=== PATIENT | female | born 1995 | race African-American/Black ===

== ENCOUNTER 2018-01-04 10:23 | Emergency (ER) | payer MEDICAID, SELFPAY ==
[2018-01-04 10:27] VITALS: BP 118/77; PULSE 111; RESP 14; TEMP 36.3; O2SAT 100; BMI 21.7
[2018-01-04 11:49] LABS: Absolute Lymphocyte Count 2.07 X10^3/ul (0.83-4.51); Absolute Neutrophil Count 4.6 X10^3/uL (2.0-7.7); Basophil# 0.01 X10^3/uL; Basophil% 0.1 % (0-1); Eosinophil# 0.09 X10^3/uL; Eosinophils% 1.2 % (0-5); Hematocrit 41.8 % (37-47); Hemoglobin 13.7 g/dl (12.0-15.0); Lymphocyte # 2.07 X10^3/ul (4.0); Lymphocyte % 27.2 % (19-41); Mean Corp Hgb Conc 32.8 g/gl (32-36); Mean Corpuscular Hgb 31.2 pg (27.0-32.0); Mean Corpuscular Volume 95.2 fL (81-99); Mean Platelet Vol. 9.9 fl (6.2-12.0); Monocyte# 0.81 X10^3/uL; Monocyte% 10.7 % (0-10); Neutrophil # 4.62 X10^3/uL (2.7-7.7); Neutrophil % 60.8 % (47-70); POSITIVE COUNT NO; POSITIVE DIFFERENTIAL NO; POSITIVE MORPHOLOGY NO; Platelet Count 288 K/mm3 (150-450); RBC Distribution Width CV 12.7 % (11.6-14.6); RBC Distribution Width SD 44.2 fl (35.1-43.9); Red Blood Count 4.39 M/mm3 (4.2-5.4); White Blood Count 7.6 K/mm3 (4.4-11.0)
[2018-01-04 11:57] LABS: ALB/GLOB Ratio 1.1 RATIO (0.9-2.4); AST(SGOT) 19 U/L (15-37); Alanine Aminotransfer ALT/SGPT 18 U/L (13-56); Albumin, Serum 3.9 g/dL (3.2-5.0); Alkaline Phosphatase 66 U/L (45-117); Anion Gap 9 (5-15); BUN 9 mg/dL (7-18); BUN/Creat Ratio 11.3 RATIO (10-20); Calcium,Total 9.1 mg/dL (8.5-10.1); Chloride 103 mmol/L (98-107); EST Glomerular Filtration Rate 97 mL/min (>60); Est Glom Filt Rate - Afr Amer 117 mL/min (>60); Globulin 3.5 g/dL (2.2-4.2); Glucose 75 mg/dL (74-106); Protein, Total 7.4 g/dL (6.4-8.2); Sodium Level 138 mmol/L (136-145)
[2018-01-04 12:02] LABS: Internal QC Validated? YES +Cl - CLEAR BKGD; Pregnancy, Urine Negative Negative
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
[2018-01-04 13:29] VITALS: BP 106/59; PULSE 100; RESP 16; O2SAT 95
[2018-01-04 13:36] LABS: Chlamydia Trachomatis by PCR Negative (Negative); Neisserai gonorrhoeae by PCR Negative (Negative); Probe Check PASS; Sample Adequacy Control PASS; Specimen Processing Control PASS
== END 2018-01-04 13:30 | disposition home or self-care (01) ==
PROVIDERS: Emergency Provider Emergency Medicine
DX: F15.20 Other stimulant dependence, uncomplicated (principal); R63.4 Abnormal weight loss; Z68.21 Body mass index [BMI] 21.0-21.9, adult; N91.2 Amenorrhea, unspecified; R55 Syncope and collapse; F43.10 Post-traumatic stress disorder, unspecified; F60.9 Personality disorder, unspecified; R50.9 Fever, unspecified; R53.1 Weakness; Z11.3 Encounter for screening for infections with a predominantly sexual mode of transmission; Z72.0 Tobacco use
CPT/HCPCS: 80053; 81025; 85025; 87491; 87591; 99284; A4216

== ENCOUNTER 2019-04-04 18:26 | Emergency (ER) | payer MEDICAID, SELFPAY ==
[2019-04-04 18:28] VITALS: BP 144/73; PULSE 80; RESP 12; TEMP 36.8; O2SAT 99; BMI 24.1
[2019-04-04 19:38] LABS: Bacteria 0 SEEN /hpf (None Seen); Color, Urine Yellow (Yellow); Glucose, Dipstick Normal (Normal); Ketone-Dipstick Negative (Negative); Leukocyte Esterase-Dipstick 25 /ul (Negative); Mucous, Urine 0 SEEN /hpf (<or=2+); Nitrite-Dipstick Negative (Negative); Occult Blood-Urine Negative /ul (Negative); Protein-Dipstick Negative (Negative); Red Blood Cells-Urine 0 SEEN /hpf (0-5); Specific Gravity, Urine 1.015 (1.002-1.030); Urine Bilirubin Dipstick Negative (Negative); Urine Clarity Clear (Clear); Urine Urobilinogen Normal (Normal); White Blood Cells 0 SEEN /hpf (0-5)
[2019-04-04 19:44] LABS: Squamous Epithelial Cells - UA 0-5 SEEN /hpf (5-10)
--- NOTE | 2019-04-04 20:01 | ED.VISSUMM ---
- ER Visit Summary Date of Service: 04/04/19 Chief Complaint: Pelvic pressure History of Present Illness: The patient is a 23 F P1 Ab0. Patient reports she is 2 months . She denies any vaginal bleeding. No significant discharge. No dysuria. No fever. Normal bowel movements. She has been seen by clinical clinic [facility]. Denies any recent ultrasound. Denies any fever. Physical Examination: Well-appearing young female. No acute distress. Vital signs stable afebrile. HEENT exam unremarkable. Neck nontender no lymphadenopathy. Lungs clear to auscultation. Heart regular rhythm no murmur. Abdomen soft nondistended normal bowel sounds no peritoneal signs. Minimal suprapubic tenderness. No organomegaly or masses other than slightly enlarged uterus. No lower quadrant tenderness. No McBurney's point tenderness. No right upper quadrant tenderness. No signs of obstruction. Patient moving all 4 extremities. Neurovascular intact. Calves are nontender without edema. Back is nontender. Neurologically she is awake and alert. Test Results: Urinalysis normal. No nitrates. No bacteria or white cells. Quantitative hCG is 247,523. heart tones were 150. Emergency Department Course and Treatment: Patient had to go to work and left. I went back to re-evaluate her and she is already left. Nurse called her with her test results. Treatment Plan: Follow-up with [facility]. Disposition: Discharge Impression: Pelvic pressure of uncertain etiology Reportedly first trimester This note was generated with [employer] dictation software. 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 Today there is no signs of infection. The baby's heart rate is normal at 150. Tylenol for pain.
--- NOTE | 2019-04-04 20:02 | ED.RN ---
PT REPORTS SHE HAS TO LEAVE FOR WORK AT THIS TIME. GAVE PT PHONE # TO CALL MEDICAL RECORDS ON SATURDAY
--- NOTE | 2019-04-04 20:03 | ED.DEP ---
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 Today there is no signs of infection. The baby's heart rate is normal at 150. Tylenol for pain.
[2019-04-04 20:05] LABS: hCG Titer Quant., Serum 47523 mIU/mL (1-3)
[2019-04-04 20:15] VITALS: BP 144/73; PULSE 80; RESP 12; O2SAT 99
== END 2019-04-04 20:00 | disposition home or self-care (01) ==
PROVIDERS: Emergency Provider Emergency Medicine
DX: O26.891 Other specified pregnancy related conditions, first trimester (principal); R10.2 Pelvic and perineal pain; O99.331 Smoking (tobacco) complicating pregnancy, first trimester; Z3A.08 8 weeks gestation of pregnancy
CPT/HCPCS: 81001; 84702; 99282

== ENCOUNTER 2019-04-22 20:19 | Emergency (ER) | payer MEDICAID, SELFPAY ==
[2019-04-22 20:20] VITALS: BP 133/72; PULSE 96; RESP 16; TEMP 36.6; O2SAT 99; BMI 23.8
[2019-04-23 00:10] VITALS: BP 128/62; PULSE 87; RESP 18; O2SAT 98
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
--- NOTE | 2019-04-23 00:15 | ED.DEP ---
ED Disposition - Plan for ED Patient: Disposition: Home or Assisted Living Instructions: LACERATION, Extrem (Suture, Staple or Tape) Referrals: Ignacio Fan MD [STAFF PHYSICIAN] - 10 Day for suture removal Additional Instructions: Clean both lacerations twice daily with either soap and water or peroxide and water. Apply antibiotic ointment. Watch for any signs of infection such as redness, warmth, pus, fever or red streaks if seen return. At the stitches taken out in 10 days.
== END 2019-04-23 00:36 | disposition home or self-care (01) ==
PROVIDERS: Emergency Provider Emergency Medicine
DX: O9A.219 Injury, poisoning and certain other consequences of external causes complicating pregnancy, unspecified trimester (principal); S51.812A Laceration without foreign body of left forearm, initial encounter; Z3A.00 Weeks of gestation of pregnancy not specified; W25.XXXA Contact with sharp glass, initial encounter; Y93.9 Activity, unspecified; Y92.9 Unspecified place or not applicable; O99.340 Other mental disorders complicating pregnancy, unspecified trimester; F90.9 Attention-deficit hyperactivity disorder, unspecified type; O99.330 Smoking (tobacco) complicating pregnancy, unspecified trimester; F17.200 Nicotine dependence, unspecified, uncomplicated; Z79.899 Other long term (current) drug therapy
CPT/HCPCS: 12002; 99284

== ENCOUNTER 2019-08-09 01:25 | Outpatient (CLI) | payer MEDICAID, SELFPAY ==
[2019-08-09 01:37] VITALS: BMI 25.9
[2019-08-09 02:29] LABS: ROM Internal Control Test YES-OK TO RESULT pt. (Internal QC); ROM Patient Test Negative (Negative)
--- NOTE | 2019-08-09 11:14 | OB.TRI.NOTE ---
- Problem List (1) Abdominal pain affecting Status: Acute History of Present Illness Date of Service: 08/09/19 Reason For Visit: R/O LABOR Date of Service: 08/09/19 Final PATRICIA: 10/18/19 Gestational age: 30 Weeks and 0 Days History of Present Illness: Patient presents with lower abdominal aching and possible LOF Allergies No Known Allergies Allergy (Verified 08/09/19 01:38) Laboratory Studies: Laboratory Tests 08/09/19 Range/Units 02:00 Vag Amniotic Fld Detect Negative (Negative) NST - FHR Rate Baby A Baseline: 150 Variability:: Moderate Accelerations:: 10 x 10 - broken on the tracing Decelerations:: None NST Reactive:: Yes Uterine Activity:: Quiet Impression/Plan Cvx closed Not ruptured Ok for d/c home with return precautions
== END 2019-08-09 03:05 | disposition home or self-care (01) ==
LOC: WPOUT 01:31 → WP 01:31
PROVIDERS: Visit Provider Obstetrics & Gynecology
DX: O26.893 Other specified pregnancy related conditions, third trimester (principal); R10.30 Lower abdominal pain, unspecified; Z3A.30 30 weeks gestation of pregnancy
CPT/HCPCS: 59025; 59050; 84112; 99218; G0378

== ENCOUNTER 2019-09-24 06:45 | Outpatient (CLI) | payer MEDICAID, SELFPAY ==
[2019-09-24 07:55] LABS: ROM Internal Control Test YES-OK TO RESULT pt. (Internal QC)
[2019-09-24 07:56] LABS: ROM Patient Test Negative (Negative)
[2019-09-24] MEDS: Lactated Ringers 1,000 ML 999 ML IV (08:05)
[2019-09-24] MEDS: Ondansetron 4 MG/2 ML Vial IV (08:09)
[2019-09-24 08:31] LABS: ALB/GLOB Ratio 0.6 RATIO (0.9-2.4); AST(SGOT) 15 U/L (15-37); Alanine Aminotransfer ALT/SGPT 15 U/L (13-56); Albumin, Serum 2.7 g/dL (3.2-5.0); Alkaline Phosphatase 168 U/L (45-117); Anion Gap 6 (5-15); BUN 18 mg/dL (7-18); BUN/Creat Ratio 23.2 RATIO (10-20); Calcium,Total 8.9 mg/dL (8.5-10.1); Chloride 111 mmol/L (98-107); Creatinine, Serum 0.78 mg/dL (0.55-1.02); EST Glomerular Filtration Rate 98 mL/min (>60); Est Glom Filt Rate - Afr Amer 119 mL/min (>60); Globulin 4.2 g/dL (2.2-4.2); Glucose 88 mg/dL (74-106); Potassium 4.1 mmol/L (3.5-5.1); Protein, Total 6.9 g/dL (6.4-8.2); Sodium Level 140 mmol/L (136-145)
[2019-09-24 09:08] VITALS: BMI 34.0
[2019-09-24] MEDS: Lactated Ringers 1,000 ML 250 ML IV (09:56)
[2019-09-24] MEDS: proCHLORPERazine 10 MG/2 ML Vial IM (09:56)
--- NOTE | 2019-10-02 08:02 | OB.TRI.NOTE ---
- Problem List (1) Nausea/vomiting in Status: Acute History of Present Illness Date of Service: 09/24/19 Was patient seen by the physician?: No Reason For Visit: R/O LABOR History of Present Illness: Pt presented with less than 24 hrs of nausea, vomiting, and diarrhea. No ctx, vb, lof. +FM Allergies No Known Allergies Allergy (Verified 09/24/19 07:23) Laboratory Studies: Laboratory Tests 09/24/19 09/24/19 Range/Units 08:00 07:15 Sodium 140 (136-145) mmol/L Potassium 4.1 (3.5-5.1) mmol/L Chloride 111 H (98-107) mmol/L Carbon Dioxide 23.0 (21.0-32.0) mmol/L Anion Gap 6 (5-15) BUN 18 (7-18) mg/dL Creatinine 0.78 (0.55-1.02) mg/dL Est GFR (MDRD) Af Amer 119 (>60) mL/min Est GFR (MDRD) Non-Af 98 (>60) mL/min BUN/Creatinine Ratio 23.2 H (10-20) RATIO Glucose 88 (74-106) mg/dL Calcium 8.9 (8.5-10.1) mg/dL Total Bilirubin 0.10 L (0.20-1.00) mg/dL AST 15 (15-37) U/L ALT 15 (13-56) U/L Alkaline Phosphatase 168 H (45-117) U/L Total Protein 6.9 (6.4-8.2) g/dL Albumin 2.7 L (3.2-5.0) g/dL Globulin 4.2 (2.2-4.2) g/dL Albumin/Globulin Ratio 0.6 L (0.9-2.4) RATIO Vag Amniotic Fld Detect Negative (Negative) NST - FHR Rate Baby A Baseline: 140 Variability:: Moderate Accelerations:: 15 x 15 Decelerations:: None NST Reactive:: Yes Uterine Activity:: Irritability Impression/Plan IVF hydration Electrolytes NST IV Zofran If feeling improved, d/c home w/ follow up in office
== END 2019-09-24 10:55 | disposition home or self-care (01) ==
LOC: WPOUT 07:19 → WP 07:20
PROVIDERS: Referring Provider Obstetrics & Gynecology; Visit Provider Obstetrics & Gynecology
DX: O21.2 Late vomiting of pregnancy (principal); Z3A.36 36 weeks gestation of pregnancy
CPT/HCPCS: 96361; 96372; 96374; 36415; 59050; 80053; 84112; 99218; J7120; G0378; J2405

== ENCOUNTER 2019-10-16 06:19 | Inpatient (IN) | payer MEDICAID, SELFPAY ==
[2019-10-16] MEDS: Lactated Ringers 1,000 ML 50 ML IV (06:40)
[2019-10-16] MEDS: Lactated Ringers 500 ML 999 ML IV (06:41)
[2019-10-16 06:48] VITALS: BMI 26.7
--- NOTE | 2019-10-16 07:03 | NURSING ---
Pt states she has a three year old son. This RN asked who was watching child and patient states that he is with his dad in [place]. Pt states he (child's father) wanted him anyway Pt states that she lives in a one bedroom apartment and didn't feel there was room for two children in apartment so she let her older son go to [place] for now.
--- NOTE | 2019-10-16 07:20 | HP.PCM_ITS ---
History Date of Admission: 10/16/19 Final PATRICIA: 10/18/19 Gestational age: 39 Weeks and 5 Days History of this : This is a 23 year-old, G 2P1 at 39.5 weeks gestation presents complaining of contraction pain and spontaneous rupture membranes. She has poor care. Has been seen at the [facility] only 4 times this . pt reports has h/o PT delivery with last child. pt only took [place] injections one time.pt reports gets mental health care at [facility] [age]- denies drug use other than marijuana but does take ADHD medications. Allergies No Known Allergies Allergy (Verified 09/24/19 07:23) Home Medications: Home Medications Methylphenidate [Cotempla Xr-Odt] 20 mg PO DAILY 04/22/19 Smoking Status: Current every day smoker Substance Use Type: Marijuana Number of Fetus(es): 1 NST - FHR Rate Baby A Baseline: 140 Variability:: Moderate History Past Pregnancies: Past Pregnancies Delivery Date Name GA/ Weeks Outcome Route Wt Infant Sex Labor Length Anesthesia Delivery Location Provider FOB Labs: A+, GBS unknown, RUB imm, Syphilis neg, HIV NR. Expected Infant Delivery Method: Spontaneous Vaginal Physical Exam General: Alert, Oriented x3 Abdomen: Soft, Non Tender, Gravid Neurological: Cranial nerves II-XII grossly intact BAG SHAKER: Normal external genitalia Presentation: Cephalic Cervix Dilation (cm): 5.6 Station: 1 Effacement (%): 80 Assessment/Plan All Active Problems Abdominal pain affecting (Acute) Nausea/vomiting in (Acute) This is a 23 year-old, @ 39.5 wks, Limited care- in labor with srom 1) admit to L&D 2) rapid GBS 3) [place]/fhr 4) nitrous for pain relief until epidural can be placed 5) urine tox
[2019-10-16 07:22] LABS: Prothrombin Time (Protime)PT. 13.3 SECONDS (11.7-14.9)
[2019-10-16 07:23] LABS: Partial Thromboplast Time 28.3 Seconds (24.1-36.2)
[2019-10-16 07:27] LABS: AST(SGOT) 22 U/L (15-37); Alanine Aminotransfer ALT/SGPT 17 U/L (13-56); Creatinine, Serum 0.83 mg/dL (0.55-1.02); EST Glomerular Filtration Rate 91 mL/min (>60); Est Glom Filt Rate - Afr Amer 110 mL/min (>60); Estimated Creatinine Clearance 76.37 ml/min; Uric Acid 4.6 mg/dL (2.6-6.0)
[2019-10-16 07:32] LABS: Absolute Lymphocyte Count 3.35 X10^3/uL (0.83-4.51); Absolute Neutrophil Count 10.7 X10^3/uL (2.0-7.7); Basophil# 0.02 X10^3/uL; Basophil% 0.1 % (0-1); Differential Indicated SCAN CRITERIA MET; Eosinophil# 0.09 X10^3/uL; Eosinophils% 0.6 % (0-5); Hematocrit 34.1 % (37-47); Hemoglobin 11.1 g/dL (12.0-15.0); Lymphocyte # 3.35 X10^3/ul (4.0); Lymphocyte % 21.2 % (19-41); Mean Corp Hgb Conc 32.6 g/dL (32-36); Mean Corpuscular Hgb 31.3 pg (27.0-32.0); Mean Corpuscular Volume 96.1 fL (81-99); Mean Platelet Vol. 11.5 fl (6.2-12.0); Monocyte% 10.1 % (0-10); NRBC Flagged by Analyzer 0 % (0-5); Neutrophil # 10.67 X10^3/uL (2.7-7.7); Neutrophil % 67.4 % (47-70); POSITIVE DIFFERENTIAL YES; Platelet Count 232 K/mm3 (150-450); RBC Distribution Width CV 13.2 % (11.6-14.6); RBC Distribution Width SD 46.4 fl (35.1-43.9); Red Blood Count 3.55 M/mm3 (4.2-5.4); White Blood Count 15.8 K/mm3 (4.4-11.0)
[2019-10-16 07:43] LABS: ROM Internal Control Test YES-OK TO RESULT pt. (Internal QC); ROM Patient Test Negative (Negative)
[2019-10-16] MEDS: fentaNYL-bupivacaine (epidural) 100 ML BAG EPIDURAL (07:54)
--- NOTE | 2019-10-16 08:48 | PCM.PN.BLA ---
Progress Note At bedside to check on pt. Comfortable with epidural. Cvx 6 cm with bulging bag. Category 1 tracing. Will allow pt to rest and then AROM. Continue current management. Anticipate . Pt notes a h/o cHTN, and she says she was last on medication for this when she was a teenager. She also says she has a h/o seizure disorder and her last seizure was 9 months ago. She says she is not currently on medication, and it has been several years since she was on medication. She does not follow with a neurologist and last saw one when she was a child per her report. She is a poor historian. She has not received regular care. Awaiting pre-e labs and rapid GBS.
[2019-10-16 08:58] LABS: Group B Strep DNA By PCR POSITIVE (Negative); Internal Control PASS; Probe Check PASS; Specimen Processing Control PASS
[2019-10-16 09:15] LABS: Protein, Urine (Random) 47.4 mg/dL (<11.9); Protein:Creat Ratio 385 mg/g CRE (0-200)
[2019-10-16 09:16] LABS: Amphetamine Urine VISTA POSITIVE (<1000 ng/mL); Barbiturate Urine VISTA NEGATIVE (< 200 ng/mL); Benzodiazepine Urine VISTA NEGATIVE (< 200 ng/mL); Cocaine Urine VISTA NEGATIVE (< 300 ng/mL); Ecstacy Urine VISTA NEGATIVE (< 500 ng/mL); Methadone Urine VISTA NEGATIVE (< 300 ng/mL); PCP Urine VISTA NEGATIVE (< 25 ng/mL); THC Urine VISTA POSITIVE (< 50 ng/mL); Vista UDS pH Range 8
[2019-10-16 09:33] LABS: Pathologist Review Reviewed
--- NOTE | 2019-10-16 12:40 | PCM.PN.BLA ---
Progress Note Pt comfortable with epidural. Penicillin gtt running. Cvx 9/80/0, head well applied, BB. AROM performed for meconium stained fluid. Pt tolerated well. Elevated p/c ratio. Rest of pre-e labs WNL. Will start mag gtt if she has any symptoms of pre-e or severe range BP's. UDS positive for amphetamines and marijuana.
[2019-10-16] MEDS: Lactated Ringers 1,000 ML 200 ML IV (12:47)
[2019-10-16] MEDS: Oxytocin 30 units/NS 500 ml 30 UNITS/500 ML IV.SOLN 334 UNITS IV (13:33)
--- NOTE | 2019-10-16 13:45 | OP.PCM_ITS ---
Problem List (1) Active labor at term Status: Acute (2) 39 weeks gestation of Status: Acute (3) Multiparous Status: Acute (4) Positive urine drug screen Status: Acute (5) Limited care Status: Acute (6) Positive GBS test Status: Acute (7) Chronic hypertension Status: Chronic Report of Operation Date of Procedure: 10/16/19 Pre-Operative Diagnosis: Labor at 38 wk gestation, multiparous patient, scant care, positive UDS, cHTN, h/o seizure disorder per patient Post-Operative Diagnosis: As above Surgery/Procedure Performed:: Description of Surgical Findings:: Viable male infant in cephalic presentation. Meconium stained fluid. Normal- appearing placenta that was intact. A three-vessel cord. Type of Anesthesia:: Epidural Special Medications: None Specimen's removed: Placenta Drains: Lui Estimated Blood Loss (mL): 200 Description of Procedure: Patient complete and pushing. Head delivered without force or delay, followed by both shoulders and body of infant. Viable male was delivered atraumatically without delay, and placed on maternal abdomen. The cord was clamped and cut after a 60 sec delay. Placenta was delivered spontaneously and noted to be intact and normal-appearing with a three-vessel cord. Uterus was explored x1. Fundus was firm and bleeding was hemostatic. No lacerations were noted. Grafts/Implants Used: None - Complications None - Admit VTE Documentation VTE Present on Admission: No Vaginal Delivery Maternal Presentation: Active Labor Amniotic Membrane Rupture Type: Artificial Amniotic Fluid Description: Thick meconium Surgery/ Procedure Performed: Spontaneous Vaginal Delivery Type of Anesthesia: Epidural Presentation: Vertex Placental Delivery Description: Spontaneous Cord Vessel Description: 3 Vessels Cord Entanglement: None Drain: Lui to straight drain Infant A gender: Male Episiotomy Description: None Laceration: None Medications given after delivery: IV Pitocin Complications: None
[2019-10-16 19:55] VITALS: BP 125/86; PULSE 99; RESP 16; TEMP 36.6
--- NOTE | 2019-10-16 22:00 | NURSING ---
Discussed Methypheridate with pt. States she does not need medication ordered here. According to pt, only takes when feels like I need to. Pt states is ordered to be taken daily, educated on importance of taking as ordered.
[2019-10-17 00:18] VITALS: BP 135/86; PULSE 86; RESP 18; TEMP 36.3
[2019-10-17] MEDS: Ibuprofen 600 MG Tablet PO ×3 (00:32→20:27)
[2019-10-17 04:53] VITALS: BP 135/86; PULSE 87; RESP 18; TEMP 36.3
[2019-10-17 08:30] VITALS: BP 144/92; PULSE 76; RESP 16; TEMP 37.1
--- NOTE | 2019-10-17 09:32 | PCM.PN.OB ---
Patient Problems: Active and Suspected Problems Active labor at term (Acute) 39 weeks gestation of (Acute) Multiparous (Acute) Positive urine drug screen (Acute) Limited care (Acute) Positive GBS test (Acute) Subjective: Patient doing well. Denies headache, vision changes, epigastric pain, nausea, vomiting. She denies lightheadedness, dizziness, chest pain, shortness of breath, leg pain. Lochia normal. Breast-feeding. Ambulating and voiding without difficulty. Tolerating regular diet. - Physical Exam Vitals/I&O's: Vital Signs Temp Pulse Resp BP 98.8 F 76 16 144/92 H 10/17/19 08:30 10/17/19 08:30 10/17/19 08:30 10/17/19 08:30 Oxygen Delivery Method Room Air Weight: 137 lb Body Mass Index (BMI) 26.7 Intake and Output for Last 24 Hours 10/15/19 10/16/19 10/17/19 23:59 23:59 23:59 Intake Total 2250.98 / 2250.98 Output Total 1200 / 1200 Balance 1050.98 / 1050.98 General: Alert, No apparent distress HEENT: Atraumatic Abdomen: Soft, Non Tender, - - FF@U-1 Extremities: No edema, No Calf Tenderness Skin: No rashes Neurological: Neuro grossly intact Psych/Mental Status: Normal Affect, Appropriate Laboratory Results 10/16/19 06:40: Diff Path Review Reviewed 10/16/19 06:40: Antibody Screen NEGATIVE Current Medications Acetaminophen (Tylenol) 1,000 mg PO Q8H PRN PRN PRN Reason: Pain Score 1-3/10 Bisacodyl (Dulcolax) 10 mg RECTAL UD PRN PRN Reason: If no BM Dibucaine (Dibucaine) 1 applic TOPICAL TID PRN PRN; Protocol PRN Reason: Discomfort Hydrocortisone (Hytone) 1 applic TOPICAL TID PRN PRN; Protocol PRN Reason: Discomfort Ibuprofen (Motrin) 600 mg PO Q6H PRN PRN PRN Reason: Pain Score 1-3/10 Last Admin: 10/17/19 08:46 Dose: 600 mg Documented by: Influenza Virus Vaccine Quadrival (Flucelvax /Fluzone ) 0.5 ml IM .ONCE ONE Stop: 10/17/19 10:01 Methylergonovine Maleate (Methergine) 0.2 mg IM X1 PRN PRN Reason: Excess bleeding/uterine atony Ondansetron HCl (Zofran) 4 mg IV Q4H PRN PRN PRN Reason: Nausea Senna/Docusate Sodium (Senokot-S, Gabrielle-Colace) 1 - 2 tablet PO DAILY PRN PRN PRN Reason: Constipation Simethicone (Mylicon) 80 mg PO PCHS PRN PRN Reason: Indigestion/Stomach pain Sodium Chloride () 5 - 15 ml IV UD PRN PRN Reason: SALINE FLUSH Medical Necessity - Tobacco Use Smoking Status: Current every day smoker Assessment/Plan All Active Problems Abdominal pain affecting (Acute) Nausea/vomiting in (Acute) Active labor at term (Acute) 39 weeks gestation of (Acute) Multiparous (Acute) Positive urine drug screen (Acute) Limited care (Acute) Positive GBS test (Acute) Patient is day 1 from a vaginal delivery. She notes a history of chronic hypertension, and she states she was placed on a blood pressure pressure medication in the past but she never took it. She says she does not want to take blood pressure medication. Discussed risk of hypertension including stroke, seizure, kidney injury, , etc. Discussed that if her blood pressures are persistently 140s to 150s over 90s will start Procardia. She has no preeclampsia symptoms at this time. Discussed that if she has severe range blood pressures or preeclampsia symptoms will start magnesium for seizure prophylaxis. We will continue to closely monitor blood pressures. Otherwise routine care. She is breast-feeding. Dispo: Continue inpatient monitoring. Possible discharge tomorrow.
[2019-10-17 12:15] VITALS: BP 137/89; PULSE 79; RESP 18; TEMP 36.6
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
[2019-10-17 16:30] VITALS: BP 134/90; PULSE 89; RESP 18; TEMP 36.3
--- NOTE | 2019-10-17 18:34 | CASEMGMT ---
[facility] A [facility] case is being opened. Laurence stating plan to follow up with MOB tomorrow either at the hospital or in the community. MOB and are able to discharge to community. Updated nursing staff on this information. Fran Stockton MSW, LIANNA
[2019-10-17 20:35] VITALS: BP 141/82; PULSE 86; RESP 18; TEMP 36.4
[2019-10-18 02:15] VITALS: BP 123/72; PULSE 79; RESP 18; TEMP 36.6
[2019-10-18 08:25] VITALS: BP 136/77; PULSE 87; RESP 24; TEMP 36.7
--- NOTE | 2019-10-18 10:37 | PCM.PN.OB ---
Patient Problems: Active and Suspected Problems Active labor at term (Acute) 39 weeks gestation of (Acute) Multiparous (Acute) Positive urine drug screen (Acute) Limited care (Acute) Positive GBS test (Acute) Subjective: Doing well. Pain is controlled. Having some cramping with breast-feeding. She denies headache, vision changes, epigastric pain, nausea, vomiting, lightheadedness, dizziness, chest pain, shortness of breath, leg pain. Ambulating and voiding without difficulty. Tolerating regular diet. - Physical Exam Vitals/I&O's: Vital Signs Temp Pulse Resp BP 98.0 F 87 24 H 136/77 H 10/18/19 08:25 10/18/19 08:25 10/18/19 08:25 10/18/19 08:25 Oxygen Delivery Method Room Air Weight: 137 lb Body Mass Index (BMI) 26.7 Intake and Output for Last 24 Hours 10/16/19 10/17/19 10/18/19 23:59 23:59 23:59 Intake Total 2250.98 / 2250.98 Output Total 1200 / 1200 Balance 1050.98 / 1050.98 General: Alert, No apparent distress HEENT: Atraumatic Abdomen: Soft, - - ATTP, FF@U-1 Extremities: No Calf Tenderness Skin: No rashes Neurological: Neuro grossly intact Psych/Mental Status: Normal Affect, Appropriate Current Medications Acetaminophen (Tylenol) 1,000 mg PO Q8H PRN PRN PRN Reason: Pain Score 1-3/10 Bisacodyl (Dulcolax) 10 mg RECTAL UD PRN PRN Reason: If no BM Dibucaine (Dibucaine) 1 applic TOPICAL TID PRN PRN; Protocol PRN Reason: Discomfort Hydrocortisone (Hytone) 1 applic TOPICAL TID PRN PRN; Protocol PRN Reason: Discomfort Ibuprofen (Motrin) 600 mg PO Q6H PRN PRN PRN Reason: Pain Score 1-3/10 Last Admin: 10/17/19 20:27 Dose: 600 mg Documented by: Methylergonovine Maleate (Methergine) 0.2 mg IM X1 PRN PRN Reason: Excess bleeding/uterine atony Ondansetron HCl (Zofran) 4 mg IV Q4H PRN PRN PRN Reason: Nausea Senna/Docusate Sodium (Senokot-S, Gabrielle-Colace) 1 - 2 tablet PO DAILY PRN PRN PRN Reason: Constipation Simethicone (Mylicon) 80 mg PO PCHS PRN PRN Reason: Indigestion/Stomach pain Sodium Chloride () 5 - 15 ml IV UD PRN PRN Reason: SALINE FLUSH Medical Necessity - Tobacco Use Smoking Status: Current every day smoker Assessment/Plan All Active Problems Abdominal pain affecting (Acute) Nausea/vomiting in (Acute) Active labor at term (Acute) 39 weeks gestation of (Acute) Multiparous (Acute) Positive urine drug screen (Acute) Limited care (Acute) Positive GBS test (Acute) PPD#2 s/p - Doing well - H/o cHTN: BP's are normal. Occasional BP 130's/90's. No pre-e symptoms. No severe range BP's. No need for BP medication at this time - CPS was in to see patient today - Dispo: D/c home today. Reviewed discharge instructions. To come in in 1-2 weeks for close follow up
--- NOTE | 2019-10-18 10:42 | DCINST_ITS ---
Discharge Diet: No Restrictions Discharge Activity: Return to Normal Activity, May Shower May resume sexual activity in: 6 weeks Ice area for (Minutes): 20 Weight Bearing Status: Weight bearing as tolerated Lifting Restrictions: None Call your doctor if you observe: Fever of 101 or Higher, Inability to urinate, Inability to have a bowel movement, Using more than one pad per hour, Shortness of breath, Dizziness, Chest pain, Increased palpitations (irregular heartbeat), Calf discomfort, Uncontrolled pain Cleanse incision/area with: Soap & Water Additional Instructions: If you experience any of the following, contact your healthcare provider. * Bleeding that soaks a pad every hour for 2 hours * Fever 100.4 or higher * Unrelieved incision or abdominal pain * Swelling, redness, discharge or bleeding from your incision or episiotomy site * Your incision begins to separate * Problems urinating (including inability to urinate or burning while urinating). * Visual changes * Severe headache * Flu-like symptoms * Pain or redness in one of both of your breasts * Pain, warmth, tenderness or swelling in your legs, especially the calf area * Frequent nausea and vomiting * Symptoms of depression or anxiety If you experience any of the following, call 911 or go to the nearest Emergency Room. * Chest pain * Problems breathing * Seizure activity * Partial or complete paralysis of a body part, slurred speech, weakness or drooping of the face, or a sudden inability to walk or hold your balance Allergies/Adverse Reactions: Allergies No Known Allergies Allergy (Verified 09/24/19 07:23) Medications to take at Discharge Methylphenidate [Cotempla Xr-Odt] 20 mg PO DAILY 04/22/19 Please Follow Up With: Lorene Nguyen DO When: 1-2 weeks and 6 weeks Primary Care Physician: Care Physician,No Primary [Primary Care Provider] - Test Results: Test results from this visit will be discussed in further detail at your follow- up appointment, if applicable.
--- NOTE | 2019-10-18 12:19 | NURSING ---
taught by Kp Bazan RN
[2019-10-19 09:42] LABS: Amphetamine Positive (.); AmphetamineGC/MS Conf 1462 ng/mL (Cutoff=500); Methamphetamines Positive (.)
[2019-10-19 14:35] LABS: Amphetamine Ur Confirm Positive (.)
--- NOTE | 2019-10-19 14:53 | CASEMGMT ---
Social Work Labor and Delivery Unit 1210 - Received call from Saira Torre ([phone], extension [phone]) at [facility] ([facility]) who is the assigned anode worker for the referral called into [facility] on 10.17.2019. Charts of patient/mother of baby (MOB) Saira report has signed releases of information. For continuity of care for this family in the matters of a child safety issues, and in direct relation to a referral called in by [facility] social work department, clarified [facility] questions regarding concerns reported, of which one concern is that baby was substance exposed in utero. Confirmed with Saira that urine confirmations sent out on mom and baby, and that baby's meconium is still pending. Clarified the documented recommendation for baby follow up and baby's weight at discharge. 1450 - noted that MOB urine confirmation is back and positive for both amphetamines and methamphetamines. Baby's urine confirmation and meconium still pending. 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 Concern would also be present due to MOB breast feeding baby and unknown whether there has been any continued ingestion by MOB of said substance since baby's . Called Saira at [facility]. Reported new findings for child safety concerns relating to substance exposed . -FREDO Garvin, DIRECTOR OF GLOBAL SALES
== END 2019-10-18 11:50 | disposition home or self-care (01) | DRG 560 ==
PROVIDERS: Obstetrics & Gynecology; Admitting Provider Obstetrics & Gynecology; Referring Provider Obstetrics & Gynecology; Visit Provider Obstetrics & Gynecology
DX: O10.92 Unspecified pre-existing hypertension complicating childbirth (principal); O99.824 Streptococcus B carrier state complicating childbirth; Z37.0 Single live birth; Z3A.38 38 weeks gestation of pregnancy; F90.9 Attention-deficit hyperactivity disorder, unspecified type; O99.344 Other mental disorders complicating childbirth; F17.200 Nicotine dependence, unspecified, uncomplicated; O99.334 Smoking (tobacco) complicating childbirth; G40.909 Epilepsy, unspecified, not intractable, without status epilepticus; O99.354 Diseases of the nervous system complicating childbirth; O77.0 Labor and delivery complicated by meconium in amniotic fluid; O99.324 Drug use complicating childbirth; F12.90 Cannabis use, unspecified, uncomplicated
CPT/HCPCS: 59025; 59050; 80307; 82565; 82570; 84112; 84156; 84450; 84460; 84550; 85025; 85610; 85730; 86850; 86900; 86901; 87653; 99218; J7120; 90686; G0378

== ENCOUNTER 2020-08-29 20:17 | Emergency (ER) | payer MEDICAID, SELFPAY ==
[2020-08-29 20:18] VITALS: BP 120/70; PULSE 123; RESP 16; TEMP 36.8; O2SAT 100; BMI 26.4
--- NOTE | 2020-08-29 20:52 | CT_ITS ---
HISTORY: UPPER ABDOMEN PAIN,SOB X 2 DAYS,ELEVATED DDIMER,PREG TEST WAS NEGATIVEHX:SUBSTANCE ABUSE TECHNIQUE: Helically acquired images were obtained of the abdomen and pelvis following the intravenous administration of 100 mL of Isovue-370 Iodinated contrast. 2D reformats. Oral contrast was administered. A radiation dose optimization technique was used for this scan. COMPARISON: None FINDINGS: # of images incl. paperwork: 390 LUNG BASES: Right lower lobe airspace disease likely atelectasis CT abdomen: Bones are unremarkable. The gallbladder remains. Liver, spleen, pancreas, and adrenal glands, are normal. The kidneys are normal. The aorta is normal. CT pelvis: No ascites is present. The appendix is normal. Coronal series 607, image 36. The uterus and ovaries are not pathologically enlarged. Follicles are present on both ovaries. The bladder is somewhat decompressed but incompletely imaged. Many loops of small bowel distally have fluid within their lumen. Proximal small bowel are adequately and normally distended with the ingested oral contrast. Visualized portions of the colon are normal CT/Abdomen/Pelvis WITH Contrast IMPRESSION: Possible enteritis. Individualized dose optimization techniques were used for this CT. at 2316 Reported and signed by: Papito Gunderson MD Electronically Signed: Papito Gunderson MD at 23:15 EST Tel , Service support ,
--- NOTE | 2020-08-29 20:54 | ED.DCSUM_ITS ---
History of Present Illness Chief Complaint: Abd Pain Informant: Patient Onset: Days - 3 days Context: Gradual Onset Current Severity: Moderate Maximum Severity: Moderate Narrative: Patient presents with upper abdominal pain for the past 3 days. She states the pain is making her feel short of breath. She denies fever or chills. No cough. No URI symptoms. She denies vomiting or diarrhea. No urinary symptoms. She denies possibility of . Past Medical History - Allergies and Home Meds Allergies/Adverse Reactions: Allergies No Known Allergies Allergy (Verified 08/29/20 20:20) Primary Care Physician: Care Physician,No Primary [Primary Care Provider] - Past Medical History: None Smoking Status: Current every day smoker Review of Systems General: Denies: Chills, Fever Eyes: Denies: Visual changes - bilaterally ENT: Denies: Bilateral ear pain Cardiovascular: Denies: Chest pain Respiratory: Reports: Dyspnea. Denies: Cough Gastrointestinal: Reports: Abdominal pain. Denies: Vomiting, Diarrhea Genitourinary: Denies: Dysuria Musculoskeletal: Denies: Swelling, Extremity Pain Skin: Denies: Rash Hematologic: Denies: Easy bruising, Easy bleeding Allergy: Denies: Uticaria Physical Exam Vital Signs/Narrative: Vital Signs Temp Pulse Resp BP Pulse Ox 08/29/20 20:18 98.2 F 123 H 16 120/70 100 Inital Vital Signs reviewed: Yes General: Well nourished, Well developed Head: Normocephalic ENT: Moist mucous membranes Neck: Supple Cardiovascular: Regular rate, Regular rhythm Respiratory: No distress, CTA bilaterally Abdomen: Soft, Tender - Moderate tenderness over the upper abdomen., Hypoactive bowel sounds. Negative for: Guarding, Rebound tenderness Extremities: Nontender Skin: Normal color Neurological: Alert, Oriented x3 Psychological: Normal affect Diagnostic/Tx/Re-eval Impressions Abdomen/Pelvis CT 08/29/20 20:52 IMPRESSION: Possible enteritis. Individualized dose optimization techniques were used for this CT. at 4736 Reported and signed by: Papito Gunderson MD Electronically Signed: Papito Gunderson MD at 23:15 EST Tel , Service support , Chest CTA 08/29/20 22:08 IMPRESSION: No pulmonary embolism, aortic aneurysm, or aortic dissection. Individualized dose optimization techniques were used for this CT. at 2304 Reported and signed by: Papito Gunderson MD Electronically Signed: Papito Gunderson MD at 23:03 EST Tel , Service support , 08/29/20 20:52 Abdomen/Pelvis WITH Contrast [CT] Stat 08/29/20 22:08 CTA Chest W/WO Contrast [CT] Stat Laboratory Results 08/29/20 08/29/20 08/29/20 20:47 21:02 21:02 WBC 16.0 H RBC 3.86 L Hgb 12.0 Hct 37.8 MCV 97.9 MCH 31.1 MCHC 31.7 L RDW Std Deviation 44.4 H RDW Coeff of Kaci 12.2 Plt Count 276 MPV 9.9 Immature Gran % (Auto) 0.400 Neut % (Auto) 72.3 H Lymph % (Auto) 15.1 L Ness % (Auto) 11.5 H Eos % (Auto) 0.6 Baso % (Auto) 0.1 Absolute Neuts (auto) 11.6 H Absolute Lymphs (auto) 2.42 Nucleated RBC % 0 Differential Comment COMMENT Diff Path Review May foll D-Dimer Quant (PE/DVT) 0.74 H* Sodium Potassium Chloride Carbon Dioxide Anion Gap BUN Creatinine Estim Creat Clear Calc Est GFR (MDRD) Af Amer Est GFR (MDRD) Non-Af BUN/Creatinine Ratio Glucose Calcium Total Bilirubin Direct Bilirubin AST ALT Alkaline Phosphatase Total Protein Albumin Globulin Lipase Serum , Qual Urine Color Yellow Urine Clarity Clear Urine pH 6.0 Ur Specific [place] 1.015 Urine Protein 30 H Urine Glucose (UA) Normal Urine Ketones Negative Urine Occult Blood Negative Urine Nitrite Negative Urine Bilirubin Negative Urine Urobilinogen 4 H Ur Leukocyte Esterase 500 H Urine RBC 0 SEEN Urine WBC 10-25 SEEN Ur Squamous Epith Cells 0-5 SEEN Urine Bacteria 0 SEEN Urine Mucus 0 SEEN 08/29/20 08/29/20 21:02 21:02 WBC RBC Hgb Hct MCV MCH MCHC RDW Std Deviation RDW Coeff of Kaci Plt Count MPV Immature Gran % (Auto) Neut % (Auto) Lymph % (Auto) Ness % (Auto) Eos % (Auto) Baso % (Auto) Absolute Neuts (auto) Absolute Lymphs (auto) Nucleated RBC % Differential Comment Diff Path Review D-Dimer Quant (PE/DVT) Sodium 141 Potassium 3.6 Chloride 107 Carbon Dioxide 27.0 Anion Gap 7 BUN 11 Creatinine 1.25 H Estim Creat Clear Calc 50.28 Est GFR (MDRD) Af Amer 68 Est GFR (MDRD) Non-Af 56 L BUN/Creatinine Ratio 8.8 L Glucose 87 Calcium 8.7 Total Bilirubin 0.30 Direct Bilirubin 0.09 AST 7 L ALT 13 Alkaline Phosphatase 68 Total Protein 7.2 Albumin 3.1 L Globulin 4.1 Lipase 103 Serum , Qual NEGATIVE Urine Color Urine Clarity Urine pH Ur Specific [place] Urine Protein Urine Glucose (UA) Urine Ketones Urine Occult Blood Urine Nitrite Urine Bilirubin Urine Urobilinogen Ur Leukocyte Esterase Urine RBC Urine WBC Ur Squamous Epith Cells Urine Bacteria Urine Mucus - Medical Decision Making Patient was given morphine, Zofran, IV fluids. Due to elevated D-dimer CTA of the chest was obtained along with a CT of the abdomen and pelvis. There is no evidence of PE or dissection. Abdominal CT reveals evidence of early enteritis. This was discussed with the patient. She will be given Bentyl and Zofran to help with symptoms at home. She will also be swabbed for Covid prior to discharge as a send out test. ED Disposition - Plan for ED Patient: Disposition: Home or Assisted Living Diagnosis: Enteritis Instructions: ED Gastroenteritis Noninfectious Prescriptions: Dicyclomine HCl [Bentyl] 20 mg PO TIDAC #20 cap Transmission Status: Pending to [facility] Ondansetron [Zofran Odt] 4 mg PO Q8H PRN PRN #10 tab PRN Reason: Nausea Transmission Status: Pending to [facility] Referrals: Sumi Montanez DO [STAFF PHYSICIAN] - As Needed
[2020-08-29] MEDS: Ondansetron 4 MG/2 ML Vial IV (21:02)
[2020-08-29] MEDS: Morphine 4 MG/ML Syringe IV (21:03)
[2020-08-29] MEDS: 0.9% Normal Saline 1,000 ML 150 ML IV (21:07)
[2020-08-29 21:12] LABS: Absolute Lymphocyte Count 2.42 X10^3/uL (0.83-4.51); Absolute Neutrophil Count 11.6 X10^3/uL (2.0-7.7); Basophil# 0.02 X10^3/uL; Basophil% 0.1 % (0-1); Eosinophil# 0.09 X10^3/uL; Eosinophils% 0.6 % (0-5); Hematocrit 37.8 % (37-47); Lymphocyte # 2.42 X10^3/ul (4.0); Lymphocyte % 15.1 % (19-41); Mean Corp Hgb Conc 31.7 g/dL (32-36); Mean Corpuscular Hgb 31.1 pg (27.0-32.0); Mean Corpuscular Volume 97.9 fL (81-99); Mean Platelet Vol. 9.9 fl (6.2-12.0); Monocyte# 1.83 X10^3/uL; Monocyte% 11.5 % (0-10); NRBC Flagged by Analyzer 0 % (0-5); Neutrophil # 11.55 X10^3/uL (2.7-7.7); Neutrophil % 72.3 % (47-70); POSITIVE DIFFERENTIAL YES; Platelet Count 276 K/mm3 (150-450); RBC Distribution Width CV 12.2 % (11.6-14.6); RBC Distribution Width SD 44.4 fl (35.1-43.9); Red Blood Count 3.86 M/mm3 (4.2-5.4)
[2020-08-29 21:13] LABS: Bacteria 0 SEEN /hpf (None Seen); Mucous, Urine 0 SEEN /hpf (<or=2+); Red Blood Cells-Urine 0 SEEN /hpf (0-5)
[2020-08-29 21:19] LABS: Differential Indicated SCAN CRITERIA MET
[2020-08-29 21:30] LABS: Internal QC Validated? YES +Cl - CLEAR BKGD; Pregnancy, Serum, hCG Quali. NEGATIVE Negative
[2020-08-29 21:33] LABS: Color, Urine Yellow (Yellow); Glucose, Dipstick Normal (Normal); Ketone-Dipstick Negative (Negative); Leukocyte Esterase-Dipstick 500 /ul (Negative); Nitrite-Dipstick Negative (Negative); Occult Blood-Urine Negative /ul (Negative); Protein-Dipstick 30 mg/dl (Negative); Specific Gravity, Urine 1.015 (1.002-1.030); Urine Bilirubin Dipstick Negative (Negative); Urine Clarity Clear (Clear); Urine Urobilinogen 4 mg/dl (Normal)
[2020-08-29 21:37] LABS: AST(SGOT) 7 U/L (15-37); Alanine Aminotransfer ALT/SGPT 13 U/L (13-56); Albumin, Serum 3.1 g/dL (3.2-5.0); Alkaline Phosphatase 68 U/L (45-117); Anion Gap 7 (5-15); BUN 11 mg/dL (7-18); BUN/Creat Ratio 8.8 RATIO (10-20); Bilirubin, Direct 0.09 mg/dL (0.00-0.30); Calcium,Total 8.7 mg/dL (8.5-10.1); Chloride 107 mmol/L (98-107); Creatinine, Serum 1.25 mg/dL (0.55-1.02); EST Glomerular Filtration Rate 56 mL/min (>60); Est Glom Filt Rate - Afr Amer 68 mL/min (>60); Estimated Creatinine Clearance 50.28 ml/min; Globulin 4.1 g/dL (2.2-4.2); Glucose 87 mg/dL (74-106); Lipase 103 U/L (73-393); Potassium 3.6 mmol/L (3.5-5.1); Protein, Total 7.2 g/dL (6.4-8.2); Sodium Level 141 mmol/L (136-145)
[2020-08-29 22:01] LABS: Squamous Epithelial Cells - UA 0-5 SEEN /hpf (5-10); White Blood Cells 10-25 SEEN /hpf (0-5)
[2020-08-29 22:07] LABS: D-Dimer Quantitative (DVT/PE) 0.74 FEU/ug/m (0.27-0.49)
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
[2020-08-29 22:46] VITALS: BP 109/57; PULSE 61; RESP 15; O2SAT 98
[2020-08-29 23:27] VITALS: BP 132/74; PULSE 75; RESP 13; O2SAT 97
[2020-08-30 13:05] LABS: Pathologist Review Reviewed
== END 2020-08-29 23:38 | disposition home or self-care (01) ==
PROVIDERS: Emergency Provider Emergency Medicine
DX: K52.9 Noninfective gastroenteritis and colitis, unspecified (principal); F17.200 Nicotine dependence, unspecified, uncomplicated
CPT/HCPCS: 71275; 74177; 80048; 80076; 81001; 83690; 84703; 85025; 85379; 87635; 96374; 96375; 99283; J7030; Q9967; J2405; U0003

== ENCOUNTER 2021-04-23 06:02 | Emergency (ER) | payer MEDICAID, SELFPAY ==
[2021-04-23 06:02] VITALS: BP 145/97; PULSE 103; RESP 16; TEMP 36.7; O2SAT 100; BMI 34.6
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
[2021-04-23 07:06] LABS: Amphetamine Urine VISTA POSITIVE (<1000 ng/mL); Barbiturate Urine VISTA NEGATIVE (< 200 ng/mL); Benzodiazepine Urine VISTA NEGATIVE (< 200 ng/mL); Cocaine Urine VISTA NEGATIVE (< 300 ng/mL); Ecstacy Urine VISTA POSITIVE (< 500 ng/mL); Methadone Urine VISTA NEGATIVE (< 300 ng/mL); PCP Urine VISTA NEGATIVE (< 25 ng/mL); THC Urine VISTA POSITIVE (< 50 ng/mL); Vista UDS pH Range 6
== END 2021-04-23 07:19 | disposition home or self-care (01) ==
PROVIDERS: Emergency Medicine; Emergency Provider Emergency Medicine
DX: F15.10 Other stimulant abuse, uncomplicated (principal); F17.210 Nicotine dependence, cigarettes, uncomplicated
CPT/HCPCS: 80307; 99281; 99282

== ENCOUNTER 2021-09-08 18:16 | Emergency (ER) | payer MEDICAID, SELFPAY ==
[2021-09-08 18:17] VITALS: BP 129/93; PULSE 118; RESP 17; TEMP 35.6; O2SAT 100; BMI 27.7
[2021-09-08 19:37] VITALS: TEMP 36.7; O2SAT 98
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
== END 2021-09-08 19:41 | disposition home or self-care (01) ==
PROVIDERS: Emergency Provider Student in an Organized Health Care Education/Training Program
DX: S06.0X9A Concussion with loss of consciousness of unspecified duration, initial encounter (principal); F17.210 Nicotine dependence, cigarettes, uncomplicated; Y04.2XXA Assault by strike against or bumped into by another person, initial encounter
CPT/HCPCS: 99282

== ENCOUNTER 2021-10-11 17:43 | Emergency (ER) | payer MEDICAID, SELFPAY ==
[2021-10-11 17:44] VITALS: BP 152/83; PULSE 84; RESP 18; TEMP 36; O2SAT 97; BMI 24.4
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
--- NOTE | 2021-10-11 19:45 | CT_ITS ---
STUDY: CT BRAIN WITHOUT CONTRAST REASON FOR EXAM: Female, 25 years old. Head injury RADIATION DOSAGE (If Supplied By Facility): CTDIvol = ( 44.99 ) mGy, DLP = ( 796.11 ) mGycm TECHNIQUE: Transaxial CT imaging of the brain was performed without administration of intravenous contrast material. Individualized dose optimization techniques were used for this CT. COMPARISON: No relevant priors. FINDINGS: Brain parenchyma is without focal lesions, mass effect, acute intracranial hemorrhage, extra parenchymal fluid collections, hydrocephalus or herniation. The skull is intact. CT/Brain/Head without Contrast IMPRESSION: 1. Normal CT brain. Electronically Signed: Huma Conrad MD at 20:26 EST Tel , Service support ,
[2021-10-11 19:58] LABS: Absolute Lymphocyte Count 3.17 X10^3/uL (0.83-4.51); Absolute Neutrophil Count 8.8 X10^3/uL (2.0-7.7); Basophil# 0.03 X10^3/uL; Basophil% 0.2 % (0-1); Eosinophil# 0.11 X10^3/uL; Eosinophils% 0.9 % (0-5); Hematocrit 42.5 % (37-47); Hemoglobin 14.1 g/dL (12.0-15.0); Lymphocyte # 3.17 X10^3/ul (0.83-4.51); Lymphocyte % 24.6 % (19-41); Mean Corp Hgb Conc 33.2 g/dL (32-36); Mean Corpuscular Hgb 31.7 pg (27.0-32.0); Mean Corpuscular Volume 95.5 fL (81-99); Mean Platelet Vol. 10.1 fl (6.2-12.0); Monocyte# 0.73 X10^3/uL; Monocyte% 5.7 % (0-10); NRBC Flagged by Analyzer 0 % (0-5); Neutrophil # 8.82 X10^3/uL (2.7-7.7); Neutrophil % 68.4 % (47-70); Platelet Count 298 K/mm3 (150-450); RBC Distribution Width CV 12.2 % (11.6-14.6); RBC Distribution Width SD 43.5 fl (35.1-43.9); Red Blood Count 4.45 M/mm3 (4.2-5.4); White Blood Count 12.9 K/mm3 (4.4-11.0)
[2021-10-11 20:02] LABS: ALB/GLOB Ratio 1.1 RATIO (0.9-2.4); AST(SGOT) 24 U/L (15-37); Alanine Aminotransfer ALT/SGPT 23 U/L (13-56); Albumin, Serum 3.9 g/dL (3.2-5.0); Alkaline Phosphatase 69 U/L (45-117); Anion Gap 6 (5-15); BUN 17 mg/dL (7-18); BUN/Creat Ratio 17.1 RATIO (10-20); Calcium,Total 9.2 mg/dL (8.5-10.1); Chloride 105 mmol/L (98-107); Creatinine, Serum 0.99 mg/dL (0.55-1.02); EST Glomerular Filtration Rate 72 mL/min (>60); Est Glom Filt Rate - Afr Amer 88 mL/min (>60); Estimated Creatinine Clearance 62.94 ml/min; Globulin 3.6 g/dL (2.2-4.2); Glucose 79 mg/dL (74-106); Potassium 4.5 mmol/L (3.5-5.1); Protein, Total 7.5 g/dL (6.4-8.2); Sodium Level 139 mmol/L (136-145)
[2021-10-11 21:26] VITALS: RESP 16
== END 2021-10-11 22:45 | disposition home or self-care (01) ==
PROVIDERS: Emergency Provider Emergency Medicine
DX: R21 Rash and other nonspecific skin eruption (principal); F17.210 Nicotine dependence, cigarettes, uncomplicated; S09.90XD Unspecified injury of head, subsequent encounter; X58.XXXD Exposure to other specified factors, subsequent encounter; M54.2 Cervicalgia; R06.02 Shortness of breath
CPT/HCPCS: 36415; 70450; 80053; 85025; 99282; A4216

== ENCOUNTER 2021-10-21 19:02 | Emergency (ER) | payer MEDICAID, SELFPAY ==
[2021-10-21 19:03] VITALS: BP 136/92; PULSE 107; RESP 16; TEMP 35.4; O2SAT 98; BMI 29.9
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
[2021-10-21 21:13] VITALS: PULSE 104; RESP 15; O2SAT 98
== END 2021-10-21 21:15 | disposition home or self-care (01) ==
PROVIDERS: Emergency Provider Emergency Medicine; Visit Provider Emergency Medicine
DX: S54.01XA Injury of ulnar nerve at forearm level, right arm, initial encounter (principal); F17.210 Nicotine dependence, cigarettes, uncomplicated; F90.9 Attention-deficit hyperactivity disorder, unspecified type; F42.9 Obsessive-compulsive disorder, unspecified; Y09 Assault by unspecified means
CPT/HCPCS: 73080; 99282

== ENCOUNTER 2023-02-27 23:58 | Emergency (ER) | payer MEDICAID, SELFPAY ==
[2023-02-27 23:59] VITALS: BP 131/90; PULSE 126; RESP 18; TEMP 36.7; O2SAT 100
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
== END 2023-02-28 01:00 | disposition home or self-care (01) ==
LOC: ED 02-28 00:51
PROVIDERS: Emergency Provider Emergency Medicine; Visit Provider Emergency Medicine
DX: S43.002A Unspecified subluxation of left shoulder joint, initial encounter (principal); F17.210 Nicotine dependence, cigarettes, uncomplicated; X58.XXXA Exposure to other specified factors, initial encounter
CPT/HCPCS: 73030; 99283

== ENCOUNTER 2023-05-08 16:45 | Emergency (ER) | payer MEDICAID, SELFPAY ==
[2023-05-08 16:47] VITALS: BP 110/72; PULSE 135; RESP 18; TEMP 37; O2SAT 100; BMI 25.5
== END 2023-05-08 17:26 | disposition left against medical advice (07) ==
LOC: ED 17:43
DX: Z53.21 Procedure and treatment not carried out due to patient leaving prior to being seen by health care provider (principal)

== ENCOUNTER 2023-05-20 13:59 | Emergency (ER) | payer OTHER, MEDICAID, SELFPAY ==
[2023-05-20 14:01] VITALS: BP 130/78; PULSE 113; RESP 18; TEMP 36.6; O2SAT 100; BMI 26.3
--- NOTE | 2023-05-20 14:34 | CT_ITS ---
STUDY: CT BRAIN WITHOUT CONTRAST REASON FOR EXAM: Female, 27 years old. Injury/Pain RADIATION DOSAGE (If Supplied By Facility): CTDIvol = ( 44.99 ) mGy, DLP = ( 779.24 ) mGycm TECHNIQUE: Transaxial CT imaging of the brain was performed without administration of intravenous contrast material. Individualized dose optimization techniques were used for this CT. COMPARISON: Comparison is made with prior study dated October 11, 2021. FINDINGS: Normal soft tissue structures. Normal calvarium. Normal size ventricles and extra-axial spaces for the patient''s age. Normal white matter tracts of the cerebral hemispheres. Normal basal ganglia and thalami. Normal brainstem. Normal cerebellum. There is no intracranial hemorrhage. There are no findings of an acute ischemic infarction. Normal visualized paranasal sinuses. CT/Brain/Head without Contrast IMPRESSION: Normal unenhanced CT scan of the brain. Electronically Signed: Sukhdeep Phoenix MD at 15:18 EDT ,
--- NOTE | 2023-05-20 14:34 | CT_ITS ---
STUDY: CT CERVICAL SPINE WITHOUT CONTRAST REASON FOR EXAM: Female, 27 years old. Injury/Pain RADIATION DOSAGE (If Supplied By Facility): CTDIvol = ( 18.75 ) mGy, DLP = ( 333.52 ) mGycm TECHNIQUE: High resolution transaxial imaging was performed without contrast material. Sagittal and coronal images were reconstructed. Individualized dose optimization techniques were used for this CT. COMPARISON: None FINDINGS: Normal craniovertebral junction. Normal anterior atlantoaxial articulation. Normal odontoid process. There is reversal of the normal cervical lordosis. Normal vertebral bodies and posterior osseous elements. C2-3: Normal endplates. Normal disc height and morphology. Normal central canal and intervertebral neuroforamina. C3-4: Normal endplates. Normal disc height and morphology. Normal central canal and intervertebral neuroforamina. C4-5: Mild with anterior spondylosis. Normal disc height and morphology. Normal central canal and intervertebral neuroforamina. C5-6: Normal endplates. Normal disc height and morphology. Normal central canal and intervertebral neuroforamina. C6-7: Normal endplates. Normal disc height and morphology. Normal central canal and intervertebral neuroforamina. C7-T1: Normal endplates. Normal disc height and morphology. Normal central canal and intervertebral neuroforamina. Normal visualized soft tissue structures. CT/Spine Cervical without Contras IMPRESSION: Mild degree of anterior spondylosis at the C4-C5 level. Electronically Signed: Sukhdeep Phoenix MD at 15:19 EDT ,
--- NOTE | 2023-05-20 14:35 | RAD_ITS ---
STUDY: X-RAY - LEFT TIBIA AND FIBULA REASON FOR EXAM: Female, 27 years old. Injury/Pain TECHNIQUE: 2 view(s) of the tibia and fibula were obtained. COMPARISON: None. FINDINGS: Normal visualized tibia. Normal visualized fibula. The soft tissue structures are unremarkable. RAD/Tibia & Fibula 2 Views IMPRESSION: Normal x-ray examination of the tibia and fibula. Electronically Signed: Sukhdeep Phoenix MD at 15:27 EDT ,
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
--- NOTE | 2023-05-20 15:04 | RAD_ITS ---
STUDY: X-RAY - LUMBAR SPINE REASON FOR EXAM: Female, 27 years old. Injury/Pain TECHNIQUE: 3 view(s) of the lumbar spine were obtained. COMPARISON: None FINDINGS: There is straightening of the normal lumbar lordosis. There is a mild dextroscoliosis of the lumbar spine. There is a normal alignment of the vertebrae. Normal vertebral bodies and endplates. Normal disc space heights. The soft tissue structures are unremarkable. RAD/Lumbar Spine 2 or 3 Views IMPRESSION: Straightening of the normal lumbar lordosis and mild dextroscoliosis. Electronically Signed: Sukhdeep Phoenix MD at 15:28 EDT ,
[2023-05-20 15:20] LABS: Internal QC Validated? YES +Cl - CLEAR BKGD; Pregnancy, Serum, hCG Quali. NEGATIVE Negative
== END 2023-05-20 15:38 | disposition home or self-care (01) ==
LOC: ED 15:31
PROVIDERS: Emergency Provider Emergency Medicine; PCP Nurse Practitioner Family; Visit Provider Emergency Medicine
DX: S06.0X9A Concussion with loss of consciousness of unspecified duration, initial encounter (principal); S16.1XXA Strain of muscle, fascia and tendon at neck level, initial encounter; S39.012A Strain of muscle, fascia and tendon of lower back, initial encounter; S80.12XA Contusion of left lower leg, initial encounter; V49.9XXA Car occupant (driver) (passenger) injured in unspecified traffic accident, initial encounter; I10 Essential (primary) hypertension; F17.210 Nicotine dependence, cigarettes, uncomplicated
CPT/HCPCS: 70450; 72100; 72125; 73590; 84703; 99283; A4216

== ENCOUNTER 2023-06-01 18:32 | Emergency (ER) | payer MEDICAID, SELFPAY ==
[2023-06-01 18:32] VITALS: BP 111/73; PULSE 123; RESP 16; TEMP 37.1; O2SAT 100; BMI 25.6
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
[2023-06-01 19:15] VITALS: BP 111/73; PULSE 100; RESP 15; O2SAT 96
== END 2023-06-01 19:16 | disposition home or self-care (01) ==
PROVIDERS: Emergency Provider Emergency Medicine; PCP Nurse Practitioner Family; Visit Provider Emergency Medicine
DX: S01.512A Laceration without foreign body of oral cavity, initial encounter (principal); F17.210 Nicotine dependence, cigarettes, uncomplicated; Y04.8XXA Assault by other bodily force, initial encounter
CPT/HCPCS: 99282

== ENCOUNTER 2023-07-23 19:38 | Emergency (ER) | payer OTHER, MEDICAID, SELFPAY ==
[2023-07-23 19:39] VITALS: BP 129/82; PULSE 119; RESP 18; TEMP 36.1; O2SAT 100; BMI 26.6
[2023-07-23 21:17] LABS: Absolute Lymphocyte Count 2.79 X10^3/uL (0.83-4.51); Absolute Neutrophil Count 9.3 X10^3/uL (2.0-7.7); Basophil# 0.03 X10^3/uL; Basophil% 0.2 % (0-1); Eosinophil# 0.07 X10^3/uL; Eosinophils% 0.5 % (0-5); Hematocrit 38.4 % (37-47); Hemoglobin 12.4 g/dL (12.0-15.0); Lymphocyte # 2.79 X10^3/ul (0.83-4.51); Lymphocyte % 21.3 % (19-41); Mean Corp Hgb Conc 32.3 g/dL (32-36); Mean Corpuscular Hgb 31.4 pg (27.0-32.0); Mean Corpuscular Volume 97.2 fL (81-99); Mean Platelet Vol. 9.1 fl (6.2-12.0); Monocyte# 0.85 X10^3/uL; Monocyte% 6.5 % (0-10); NRBC Flagged by Analyzer 0 % (0-5); Neutrophil % 71.1 % (47-70); Platelet Count 305 K/mm3 (150-450); RBC Distribution Width CV 12.7 % (11.6-14.6); RBC Distribution Width SD 45.3 fl (35.1-43.9); Red Blood Count 3.95 M/mm3 (4.2-5.4); White Blood Count 13.1 K/mm3 (4.4-11.0)
[2023-07-23 21:30] LABS: Anion Gap 3 (5-15); BUN 12 mg/dL (7-18); BUN/Creat Ratio 13.7 RATIO (10-20); Calcium,Total 8.9 mg/dL (8.5-10.1); Chloride 108 mmol/L (98-107); Creatinine, Serum 0.88 mg/dL (0.55-1.02); EST Glomerular Filtration Rate 82 mL/min (>60); Est Glom Filt Rate - Afr Amer 100 mL/min (>60); Glucose 84 mg/dL (74-106); Sodium Level 139 mmol/L (136-145)
[2023-07-23 21:45] LABS: International Normalized Ratio 1.1
[2023-07-23 21:46] LABS: Partial Thromboplast Time 29.1 Seconds (24.1-36.2)
--- NOTE | 2023-07-23 21:49 | ED.RN ---
ANSWERED CALL LIGHT. PT REPORTS SHE NEEDS TO GO HOME. INFORMED DR. QUIROZ. IV DC'D AND OBTAINED CURRENT PHONE NUMBER PER PATIENT IN CASE WE NEED TO CALL HER WITH ABNORMAL RESULTS. PH# [phone].
[2023-07-23 21:50] VITALS: BP 129/82; PULSE 110; RESP 15; O2SAT 100
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
== END 2023-07-23 21:52 | disposition home or self-care (01) ==
LOC: ED 21:33
PROVIDERS: Emergency Provider Emergency Medicine; PCP Nurse Practitioner Family; Visit Provider Emergency Medicine
DX: R21 Rash and other nonspecific skin eruption (principal); F17.210 Nicotine dependence, cigarettes, uncomplicated
CPT/HCPCS: 80048; 85025; 85610; 85730; 99283; A4216

== ENCOUNTER 2023-10-16 10:52 | Emergency (ER) | payer MEDICAID, SELFPAY ==
[2023-10-16 10:53] VITALS: BP 113/75; PULSE 109; RESP 22; TEMP 35.7; O2SAT 100; BMI 26.6
--- NOTE | 2023-10-16 11:22 | RAD_ITS ---
INDICATION: pain, history of dislocation -- plus axillary EXAMINATION/TECHNIQUE: X-RAY - LEFT XR Shoulder Min 2 Views 2 VIEWS COMPARISON: Prior study dated: February 28, 2023 FINDINGS: SOFT TISSUES: No soft tissue swelling or gas. No radiopaque foreign body. BONES/JOINTS: No acute fracture or subluxation.. Normal alignment. Preservation of the joint space.. No sclerotic or destructive changes observed. RAD/Shoulder min 2 Views IMPRESSION: Negative. Electronically Signed: Lexi Irving MD at 12:07 EST ,
--- NOTE | 2023-10-16 11:23 | EX.ED.UPPERE ---
HPI History of Present Illness Chief Complaint: Upper Extremity Injury Narrative Narrative: 27-year-old female past medical history of multiple shoulder dislocations, [id number], presents with reported shoulder dislocation on the left side. She denies any recent falls. She states she does not see an orthopedic surgeon, but has frequent shoulder dislocations. Over the last week, her left shoulder has been popping in and out . Usually she states she is able to relocate her shoulder, but she now has pain whenever she tries to move her left shoulder. It is mainly in the back of her shoulder. She had to go to court this morning, and now presents with pain in her left shoulder feeling as if it is dislocated. [facility] Medical History ADHD OCD (obsessive compulsive disorder) Sickle cell anemia Home Medications naproxen 500 mg tablet (Naprosyn) 500 mg PO BID PRN pain #20 tabs 02/28/23 [Rx Last Taken Unknown] penicillin V potassium 250 mg/5 mL oral solution 500 mg (10 mL) PO Q6H 7 days #280 mL 06/01/23 [Rx Last Taken Unknown] cyclobenzaprine 10 mg tablet 10 mg PO TID PRN muscle spasm #12 tabs 10/16/23 [Rx Last Taken Unknown] naproxen 500 mg tablet (Naprosyn) 500 mg PO BID PRN pain #20 tabs 10/16/23 [Rx Last Taken Unknown] Allergy/AdvReac Type Severity Reaction Status Date / Time metronidazole [From Flagyl] Allergy Rash Verified 07/23/23 19:39 Social History household members: significant other and children Smoking Status: Current every day smoker tobacco type: cigarettes ROS ROS ED ROS Narrative Constitutional: No fever, no chills. HEENT: No sore throat. No neck pain. No loss of vision. No rhinorrhea. Cardiovascular: No chest pain. No palpitations. No pedal edema. Respiratory: No cough, no shortness of breath. Abdominal: No abdominal pain. No nausea. No vomiting. Genitourinary: No dysuria. No hematuria. Musculoskeletal: No myalgias. Left shoulder pain, mainly posterior, feels as if left shoulder is dislocated. Neurologic: No headaches. No dizziness. No lightheadedness. Skin: No rash. No change in color. Psychiatric: No depression. No anxiety. EXAM Physical Exam Narrative Exam Narrative: Afebrile. Vital signs noted. HEENT: Normocephalic. Atraumatic. PERRL, EOMI. Neck soft and supple. No point tenderness or step off. Cardiovascular: Regular rate and rhythm. No murmurs, rubs, or gallops appreciated. Respiratory: No tachypnea. Lungs clear to auscultation bilaterally. Gastrointestinal: Abdomen soft, nontender, with normoactive bowel sounds. No rebound or guarding. Neurological: Awake. Alert. Nonfocal, nonlateralizing. Skin: No rash. Normal color. No pallor. Musculoskeletal: No pedal edema. Decreased range of motion of the left shoulder secondary to pain. No palpable deficit. Palpable radial pulse, left. Neurovascular intact distally. Able to make a fist. Range of motion left shoulder decreased secondary to pain. Const Vital Signs: 10/16/23 10:53 Temperature 96.2 F L Temperature Source Temporal Pulse Rate 109 H Respiratory Rate 22 H Blood Pressure 113/75 Blood Pressure Mean 87 Pulse Ox 100 MDM MDM MDM Narrative Medical decision making narrative: I reviewed the patient's prior records. During one of her ER visits, she had stated that she has had shoulder dislocations 3 times in the past. X-rays were negative at that time and she had been placed in a sling and referred to orthopedics and given naproxen. Clinically, this may be more of a dislocation versus subluxation versus muscle strain. X-rays of the shoulder and 3 views interpreted by myself, left shoulder, shows no evidence of dislocation or fracture. I reviewed the radiology report which confirms my independent interpretation. At this point in time, I feel she can be discharged to follow-up with orthopedics as needed or her primary care provider. She was written prescriptions for naproxen and Flexeril. She was placed in a sling for comfort, but told to exercise her left shoulder a few times a day to prevent adhesive capsulitis/frozen shoulder. I feel she can be discharged safely home with follow-up. Return instructions were reviewed. Disposition is discharged home in stable condition. History & Record Review Discussion w/independent historian: Patient Additional record(s) reviewed:: Prior ED visit Discharge Plan Triage Chief Complaint: Upper Extremity Injury ED Provider: Stef Bowman Dx/Rx/DC Orders Clinical Impression: Shoulder pain, left Instructions: ED Shoulder Sprain, ED Shoulder Pain, Uncertain Cause Prescriptions: New naproxen [Naprosyn] 500 mg tablet 500 mg PO BID PRN (Reason: pain) Qty: 20 0RF cyclobenzaprine 10 mg tablet 10 mg PO TID PRN (Reason: muscle spasm) Qty: 12 0RF No Action naproxen [Naprosyn] 500 mg tablet 500 mg PO BID PRN (Reason: pain) Qty: 20 0RF penicillin V potassium 250 mg/5 mL recon soln 500 mg PO Q6H 7 Days Qty: 280 0RF Primary Care Provider: Megan Noble Referrals: Charles Galloway MD [Med Staff - Active Staff] - As Needed Megan Noble, [employer] [Primary Care Provider] - 1 Week if not improving Disposition Disposition: Home, Self Care
== END 2023-10-16 12:56 | disposition home or self-care (01) ==
PROVIDERS: Emergency Provider Emergency Medicine; PCP Nurse Practitioner Family; Visit Provider Emergency Medicine
DX: M25.512 Pain in left shoulder (principal); F17.210 Nicotine dependence, cigarettes, uncomplicated
CPT/HCPCS: 73030; 99282